=== PATIENT | male | born 1960 | race Caucasian/White ===

== ENCOUNTER 2016-07-07 16:16 | Emergency (ER) | payer MEDICAID ==
[~2016-07-07] VITALS: Ht 180.3 cm; Wt 72.8 kg
[~2016-07-07 16:16] MED LIST: ACET-1757 PO; AMOX875T PO; HYDR1TAB12 PO; LEVO750T26 PO; NICO1PAT4 TD; RIVA20TA PO
[2016-07-07 16:20] VITALS: BP 161/77
[2016-07-07] MEDS ORDERED: KETOROLAC 30 MG/1 ML ONE (16:58)
[2016-07-07] MEDS ORDERED: KETOROLAC 30 MG/1 ML IM ONE (17:00)
== END 2016-07-07 17:32 | disposition home or self-care (01) ==
LOC: ED 17:26
DX: K13.79 Other lesions of oral mucosa (principal); R22.9 Localized swelling, mass and lump, unspecified
CPT/HCPCS: 96372; 99283; J1885

== ENCOUNTER 2017-03-06 14:23 | Emergency (ER) | payer SELFPAY ==
[~2017-03-06] VITALS: Ht 180.3 cm; Wt 69.6 kg
[~2017-03-06 14:23] MED LIST changes: +NICO-486 TD; -NICO1PAT4 TD
[2017-03-06 14:30] VITALS: BP 166/81
[2017-03-06] MEDS ORDERED: LIDOCAINE 1%, 10ML ONE (15:19)
[2017-03-06] MEDS ORDERED: DIPH,PERTUSS(ACELL),TET VAC/PF 0.5 ML IM-VACC ONE ×2 (15:19→15:30)
[2017-03-06] MEDS ORDERED: IBUPROFEN 200 MG TABLET ONE (15:20)
[2017-03-06] MEDS ORDERED: HYDROcodone/APAP 5/325 TABLET ONE (15:20)
[2017-03-06] MEDS ORDERED: IBUPROFEN 200 MG TABLET PO ONE (15:30)
[2017-03-06] MEDS ORDERED: LIDOCAINE 1%, 20ML SQ ONE (15:30)
[2017-03-06] MEDS ORDERED: HYDROcodone/APAP 5/325 TABLET PO ONE (15:30)
== END 2017-03-06 16:36 | disposition home or self-care (01) ==
LOC: ED 16:00
DX: S61.412A Laceration without foreign body of left hand, initial encounter (principal); W54.0XXA Bitten by dog, initial encounter; Y93.89 Activity, other specified; Y92.89 Other specified places as the place of occurrence of the external cause; Y99.8 Other external cause status; Z88.8 Allergy status to other drugs, medicaments and biological substances
CPT/HCPCS: 12002; 90471; 90715